=== PATIENT | female | born 1960 | race Hispanic/Latino ===

== ENCOUNTER 2018-05-21 10:32 | Day surgery (SDC) | payer OTHER ==
[2018-04-30 08:30] VITALS: BMI 18.9
[~2018-05-21 10:32] MED LIST: Carbachol 0.01% IO ONE; Cyclopentolate 1% Opth (2 ml) OD SCH; Hyaluronidase Human, Recombi 150 U/ML VIAL ONE; Ketorolac Tromethamine 0.5% Opth Soln (3 ml) OD SCH; Lactated Ringer's 500 ML IV ONE; Lidocaine 2% MPF (5 ml) Inj ONE; Ofloxacin 0.3% Ophth Soln OD SCH; Phenylephrine 2.5% Opht Soln OD SCH; Tetracaine 0.5% Ophth (OR ONLY) ONE; Tobramycin/Dexamethasone (Tobradex) Opth Sol (2.5 ml) ONE; Tropicamide 0.5% Opht Sol OD SCH
[2018-05-21] MEDS ORDERED: Phenylephrine 2.5% Opht Soln OD SCH (11:15)
[2018-05-21] MEDS ORDERED: Lactated Ringer's 500 ML IV ONE ×2 (11:15→11:32)
[2018-05-21] MEDS ORDERED: Ketorolac Tromethamine 0.5% Opth Soln (3 ml) OD SCH (11:15)
[2018-05-21] MEDS ORDERED: Ofloxacin 0.3% Ophth Soln OD SCH (11:15)
[2018-05-21] MEDS ORDERED: Tropicamide 0.5% Opht Sol OD SCH (11:15)
[2018-05-21] MEDS ORDERED: Cyclopentolate 1% Opth (2 ml) OD SCH (11:15)
[2018-05-21] MEDS ORDERED: Chondroitin/Hyaluronate Opth Syringe KIT (0.55 ml-0.5 ml) IO ONE (12:21)
[2018-05-21] MEDS ORDERED: Propofol 10 mg/ml Inj (20 ML) ONE (12:55)
[2018-05-21] MEDS ORDERED: acetaZOLAMIDE 500 mg SR Cap PO ONE (13:30)
[2018-05-21 13:33] VITALS: O2SAT 95
[2018-05-21 14:17] VITALS: TEMP 97.7
[2018-05-21 16:46] VITALS: BP 140/84; PULSE 74; RESP 16
--- NOTE | 2018-05-27 10:57 | OP ---
PROCEDURE DATE: 05/21/2018 PREOPERATIVE DIAGNOSIS: MATURE CATARACT, RIGHT EYE. POSTOPERATIVE DIAGNOSIS: MATURE CATARACT, RIGHT EYE. OPERATIVE PROCEDURE: CATARACT EXTRACTION WITH IMPLANT AND USE OF TRYPAN BLUE DYE, RIGHT EYE. ANESTHESIA TYPE: Local, standby. COMPLICATIONS: None. PROCEDURE: Local anesthesia was achieved using a mixture of 1% lidocaine and Amphadase. The patient was then prepped and draped in the usual sterile fashion for ophthalmic surgery. Betadine drops were placed into the eye. A lid speculum was used and a sideport incision was made using a 15 degree blade. Trypan Blue dye was used to stain the anterior capsule. Viscoelastic was used to fill the anterior chamber and a 2.7 millimeter slit blade was used to create a surgical opening. Additional viscoelastic was placed into the eye and a capsulorrhexis was performed. Hydrodissection and delineation were then carried out. Phacoemulsification of the nucleus was performed with ease and cortical cleanup was achieved without difficulty. The capsular bag was refilled using viscoelastic and a posterior chamber lens was inserted through the existing wound and placed into the capsular bag and easily centered Andrew Ruiz MD
== END 2018-05-21 14:05 | disposition home or self-care (01) ==
LOC: C.SDS 10:32
PROVIDERS: ATTEND Ophthalmology
DX: H25.89 Other age-related cataract (principal)
CPT/HCPCS: 66984; J2704; J3470; J7120; V2632

== ENCOUNTER 2018-06-18 08:41 | Day surgery (SDC) | payer OTHER ==
[2018-04-30 08:30] VITALS: BMI 18.9
[~2018-06-18 08:41] MED LIST changes: +Chondroitin/Hyaluronate Opth Syringe KIT (0.55 ml-0.5 ml) IO ONE; -Cyclopentolate 1% Opth (2 ml) OD SCH; +Cyclopentolate 1% Opth (2 ml) OS SCH; -Ketorolac Tromethamine 0.5% Opth Soln (3 ml) OD SCH; +Ketorolac Tromethamine 0.5% Opth Soln (3 ml) OS SCH; -Ofloxacin 0.3% Ophth Soln OD SCH; +Ofloxacin 0.3% Ophth Soln OS SCH; -Phenylephrine 2.5% Opht Soln OD SCH; +Phenylephrine 2.5% Opht Soln OS SCH; +Povidone Iodine Ophthalmic 5% Soln ONE; +Tobramycin/Dexamethasone OPHT OINT ONE; -Tropicamide 0.5% Opht Sol OD SCH; +Tropicamide 0.5% Opht Sol OS SCH
[2018-06-18] MEDS ORDERED: Lactated Ringer's 1,000 ML IV ONE (09:37)
[2018-06-18] MEDS ORDERED: Propofol 10 mg/ml Inj (20 ML) ONE (11:24)
[2018-06-18] MEDS ORDERED: Triamcinolone Acetonide 40 mg/mL Inj ONE (11:32)
[2018-06-18] MEDS ORDERED: Labetalol 5mg/ml (4ml) ONE (11:57)
[2018-06-18 12:37] VITALS: BP 139/92; PULSE 79; RESP 18; TEMP 97; O2SAT 100
[2018-06-18] MEDS ORDERED: acetaZOLAMIDE 500 mg SR Cap PO STA (12:49)
--- NOTE | 2018-06-19 08:19 | OP ---
PROCEDURE DATE: 06/18/2018 PREOPERATIVE DIAGNOSIS: MATURE CATARACT, LEFT EYE. POSTOPERATIVE DIAGNOSIS: MATURE CATARACT, LEFT EYE. OPERATIVE PROCEDURE: CATARACT EXTRACTION WITH TRYPAN BLUE DYE, LEFT EYE. ANESTHESIA TYPE: General. ANESTHESIOLOGIST: COMPLICATIONS: None. PROCEDURE: General anesthesia was easily induced. The patient was then prepped and draped in the usual sterile fashion for ophthalmic surgery. Betadine drops were placed into the eye. A lid speculum was used and a sideport incision was made using a 15 degree blade. Trypan blue dye was used to stain the anterior capsule. Viscoelastic was used to fill the anterior chamber and a 2.7 millimeter slit blade was used to create a surgical opening. Additional viscoelastic was placed into the eye and a capsulorrhexis was performed. Hydrodissection and delineation were then carried out. Phacoemulsification of the nucleus was performed with ease and cortical cleanup was achieved without difficulty. The capsular bag was refilled using viscoelastic and a posterior chamber lens was inserted through the existing wound and placed into the capsular bag and easily centered. All viscoelastic was then aspirated from the eye and Miochol was instilled for good symmetric pupillary constriction. The sideport wound was hydrated as necessary and a good watertight closure was observed at the conclusion of the case. A TobraDex soaked collagen shield was then placed over the eye. The lid speculum was removed. TobraDex ointment was placed onto the eye and a patch and shield were placed. The patient tolerated the procedure well. Andrew Ruiz MD
== END 2018-06-18 13:16 | disposition home or self-care (01) ==
LOC: C.SDS 08:41
PROVIDERS: ATTEND Ophthalmology
DX: H25.12 Age-related nuclear cataract, left eye (principal)
CPT/HCPCS: 66984; J2704; J3470; J7120; V2632